=== PATIENT | male | born 1965 | race Caucasian/White ===

== ENCOUNTER 2020-01-22 08:28 | Day surgery (SDC) | payer BC ==
[~2020-01-22 08:28] MED LIST: Lactated Ringers 1,000 ML IV SCH; Lidocaine 1%/Sod Bicarbonate in NS 8.4% 1 ML Syringe IDERM PRN; Sodium Chloride 0.9% 10 ML Syringe FLUSH PRN
[2020-01-22] MEDS ORDERED: Lidocaine 1% 4 ML ONE (08:40)
[2020-01-22] MEDS ORDERED: fentaNYL 100 MCG/2 ML SDV ONE (08:41)
[2020-01-22] MEDS ORDERED: Propofol 200 MG/20 ML SDV ONE (08:41)
[2020-01-22] MEDS ORDERED: Midazolam 1 MG/ML 2 ML SDV ONE (08:41)
--- NOTE | 2020-01-22 08:44 | PCM.PREANE ---
Preanesthetic Assessment - Procedure Proposed Procedure: colonoscopy - Anesthesia/Transfusion/Family Hx Anesthesia History: No Prior Anesthesia Family History of Anesthesia Reaction: No Transfusion History: No Prior Transfusion(s) - Review of Systems General: No Symptoms Pulmonary: No Symptoms Cardiovascular: No Symptoms Gastrointestinal: No Symptoms Neurological: No Symptoms Other: Reports: None - Physical Assessment NPO Status Date: 01/21/20 NPO Status Time: 22:00 Vital Signs: 98.2 16 92% 72 142/77 Height: 6 ft 4 in Weight: 162.84 kg ASA Class: 2 Mental Status: Alert & Oriented x3 Airway Class: Mallampati = 1 Dentition: Reports: Normal Dentition Thyro-Mental Finger Breadths: 3 Mouth Opening Finger Breadths: 3 ROM/Head Extension: Full Lungs: Clear to Auscultation, Normal Respiratory Effort Cardiovascular: Regular Rate, Regular Rhythm - Allergies Allergies/Adverse Reactions: Allergies Allergy/AdvReac Type Severity Reaction Status Date / Time Penicillins Allergy Anaphylactic Verified 01/19/20 12:38 Shock - Blood Blood Available: No - Acknowledgements Anesthesia Type Planned: MAC Pt an Appropriate Candidate for the Planned Anesthesia: Yes Alternatives and Risks of Anesthesia Discussed w Pt/Guardian: Yes Pt/Guardian Understands and Agrees with Anesthesia Plan: Yes PreAnesthesia Questionnaire HEENT History: Reports: Impaired Vision Cardiovascular History: Reports: High Cholesterol, Hypertension Respiratory History: Reports: Sleep Apnea Gastrointestinal History: Reports: None Genitourinary History: Reports: Renal Calculus OFFSET PRESSMAN History: Reports: None Musculoskeletal History: Reports: None Neurological History: Reports: None Psychiatric History: Reports: None Endocrine/Metabolic History: Reports: None Hematologic History: Reports: None Immunologic History: Reports: None Oncologic (Cancer) History: Reports: None Dermatologic History: Reports: None - Past Surgical History Head Surgeries/Procedures: Reports: None HEENT Surgical History: Reports: LASIK Cardiovascular Surgical History: Reports: None Respiratory Surgical History: Reports: None GI Surgical History: Reports: None Female Surgical History: Reports: None Male Surgical History: Reports: None Endocrine Surgical History: Reports: None Neurological Surgical History: Reports: None Musculoskeletal Surgical History: Reports: None Oncologic Surgical History: Reports: None Dermatological Surgical History: Reports: None - SUBSTANCE USE Smoking Status *Q: Former Smoker Tobacco Use Within Last Twelve Months: Snuff/Dip (quit 1 year ago) Second Hand Smoke Exposure: No Days Per Week of Alcohol Use: 1 Number of Drinks Per Day: 6 Total Drinks Per Week: 6 Recreational Drug Use History: No - HOME MEDS Home Medications: Home Meds Loratadine [Claritin] 10 mg PO DAILY 01/19/20 [History] Losartan [Cozaar] 24 mg PO DAILY 01/19/20 [History] Multivitamin [Daily Multiple Vitamin] 1 tab PO DAILY 01/19/20 [History] atorvaSTATin Calcium [Lipitor] 40 mg PO DAILY 01/19/20 [History] - CURRENT (IN HOUSE) MEDS Current Meds: Current Medications Lactated Ringer's (Ringers, Lactated) 1,000 mls @ 125 mls/hr IV ASDIRECTED BARBI Stop: 01/22/20 23:00 Lidocaine/Sodium Bicarbonate (Buffered Lidocaine 1% In Ns 8.4%) 0.25 ml IDERM ONETIME PRN PRN Reason: Prior to IV Start Stop: 01/22/20 18:00 Sodium Chloride (Saline Flush) 10 ml FLUSH ASDIRECTED PRN PRN Reason: Keep Vein Open Stop: 01/22/20 18:00
--- NOTE | 2020-01-22 09:43 | PCM48HPAN ---
Post Anesthesia Note - EVALUATION WITHIN 48HRS OF ANESTHETIC Vital Signs in Normal Range: Yes Patient Participated in Evaluation: Yes Respiratory Function Stable: Yes Airway Patent: Yes Cardiovascular Function Stable: Yes Hydration Status Stable: Yes Pain Control Satisfactory: Yes Nausea and Vomiting Control Satisfactory: Yes Mental Status Recovered: Yes Vital Signs: Last Vital Signs Temp 36.8 C 01/22/20 08:35 Pulse 72 01/22/20 08:35 Resp 16 01/22/20 08:35 BP 142/77 H 01/22/20 08:35 Pulse Ox 92 L 01/22/20 08:35
--- NOTE | 2020-01-22 09:58 | PROC ---
DATE OF OPERATION: 01/22/2020 SURGEON: Nighat James MD PREOPERATIVE DIAGNOSIS: Positive FIT test. POSTOPERATIVE DIAGNOSES: 1. Diverticulosis. 2. Small polyp in the proximal transverse colon. OPERATION PERFORMED: Colonoscopy. ANESTHESIA: Monitored anesthesia care. COMPLICATIONS: None. INDICATION AND CONSENT: The patient is a 54-year-old male who had positive FIT test. Due to this, he was evaluated in clinic for colonoscopy. Risks, benefits, and alternatives were discussed with the patient. Risks discussed include bleeding and perforation. The patient understood, agreed to proceed with procedure. Informed consent was obtained. DETAILS OF PROCEDURE: The patient was taken to the procedure room, placed in left lateral decubitus position following induction of monitored anesthesia care. A time-out was performed and a colonoscopy was started. Began by performing a perianal exam which was normal. Digital rectal exam was normal. The scope was inserted all the way to the cecum. Appendiceal orifice and ileocecal valve were photographed and then the colonic mucosa was examined. In the distal ascending colon, there was at least 1 diverticula,and then in the proximal transverse colon just after the splenic flexure, there was a 2-3 mm polyp that was removed with cold forceps. Then, the rest of the transverse colon was normal. The sigmoid colon had scattered diverticula and the rectum was normal. Retroflexion was normal. Then, air was suctioned from the colon and the scope removed. The patient will be allowed to go home. We will wait for the results of the pathology from the biopsy polyp and call the patient with the results and followup plans. JUSTIN /[id number] [place]
== END 2020-01-22 10:26 | disposition home or self-care (01) ==
LOC: JD.SDS 08:28
PROVIDERS: ATTEND Surgery
DX: D12.3 Benign neoplasm of transverse colon (principal); K57.30 Diverticulosis of large intestine without perforation or abscess without bleeding; I10 Essential (primary) hypertension; E78.5 Hyperlipidemia, unspecified; Z79.899 Other long term (current) drug therapy; E66.9 Obesity, unspecified; Z80.0 Family history of malignant neoplasm of digestive organs; Z68.41 Body mass index [BMI] 40.0-44.9, adult; Z88.0 Allergy status to penicillin; Z87.891 Personal history of nicotine dependence
CPT/HCPCS: 45380; J2001; J2250; J2704; J3010; J7120; 00811